=== PATIENT | female | born 1945 | race Caucasian/White ===

== ENCOUNTER → 2017-05-25 | Outpatient (CLI) | payer OTHER | LOC: CIMAGING 11:00 | PROVIDERS: ATTEND Internal Medicine | DX: Z12.31 Encounter for screening mammogram for malignant neoplasm of breast (principal); Z80.3 Family history of malignant neoplasm of breast | CPT/HCPCS: G0202 ==

== ENCOUNTER → 2018-06-13 | Outpatient (CLI) | payer OTHER, MEDICARE | LOC: BRMIMAGING 12:33 | PROVIDERS: ATTEND Internal Medicine | DX: Z12.31 Encounter for screening mammogram for malignant neoplasm of breast (principal); Z13.820 Encounter for screening for osteoporosis; M85.89 Other specified disorders of bone density and structure, multiple sites; Z78.0 Asymptomatic menopausal state; Z85.3 Personal history of malignant neoplasm of breast ==

== ENCOUNTER 2018-07-31 13:17 | Emergency (ER) | payer OTHER, MEDICARE ==
[2018-07-31 13:27] VITALS: BP 142/95
[2018-07-31] MEDS ORDERED: IBUPROFEN 600 MG TAB PO ONE (14:09)
--- NOTE | 2018-07-31 14:13 | EDPHY ---
H & P Time Seen by Provider: 07/31/18 13:24 HPI/ROS: CHIEF COMPLAINT: Left ankle pain HISTORY OF PRESENT ILLNESS: Patient states she was walking her dog about 1 hr prior to arrival when she slipped on ice. She felt her left foot and ankle go out from under her and fell to the ground. She was able to hobble back into her house after getting herself off the ground. She denies head, neck, hand, wrist, elbow or knee injuries. Denies other complaints or injuries. No loss of consciousness. REVIEW OF SYSTEMS: Negative except per HPI. General Appearance: Alert, no distress. Eyes: Pupils equal and round no icterus Respiratory: No respiratory distress Neurological: Awake, alert, no focal deficits. Skin: Warm and dry, no rashes. Musculoskeletal: Neck is supple nontender. Left ankle with swelling and tenderness over the lateral malleolus. No medial malleolar tenderness. No tenderness over the proximal 5th metatarsal. Distal circulation, sensation, movement intact. Rest of extremity exam normal. Psychiatric: Patient is oriented X 3, there is no agitation. Medical/surgical history: Breast cancer with right arm lymphedema. Hypertension, high cholesterol, GERD. Social history: Nonsmoker Smoking Status: Never smoked Constitutional: Initial Vital Signs Temperature (C) 36.9 C 07/31/18 13:23 Heart Rate 69 07/31/18 13:23 Respiratory Rate 18 07/31/18 13:23 Blood Pressure 142/95 H 07/31/18 13:23 O2 Sat (%) 95 07/31/18 13:23 O2 Delivery Mode Room Air Allergies/Adverse Reactions: azithromycin [From Zithromax] Allergy (Intermediate, Verified 07/31/18 13:22) Other-Enter Comments Penicillins Allergy (Intermediate, Verified 07/31/18 13:22) Hives Home Medications: Medication Instructions Recorded Atorvastatin Calcium [Lipitor 10 10 mg PO DAILY 08/14/11 mg] Metoprolol Tartrate 50 mg PO 08/14/11 Omeprazole 08/14/14 Citalopram 07/31/18 Medical Decision Making - Diagnostics Imaging Results: Distal fibula fracture with minimal displacement. Imaging: I viewed and interpreted images myself Differential Diagnosis: Patient with distal fibular fracture after slip and fall on ice today. No signs or complaints of other injury. Patient placed in a Ackerman type boot and given crutches as weight-bearing painful. Referred to Dr. Melo, orthopedist , for re-evaluation later this week. Understands follow-up and return precautions. Also reviewed RICE instructions. Offered stronger pain medications and patient refused. Stable for outpatient follow-up. - Data Points Medications Given: Discontinued Medications Ibuprofen (Motrin) 600 mg PO EDNOW ONE Stop: 07/31/18 14:10 Last Admin: 07/31/18 14:13 Dose: 600 mg Departure - Departure Disposition: Home, Routine, Self-Care Clinical Impression: Fibula fracture Qualifiers: Encounter type: initial encounter Fibula location: distal Fracture type: closed Fracture morphology: unspecified fracture morphology Laterality: left Qualified Code(s): S82.832A - Other fracture of upper and lower end of left fibula, initial encounter for closed fracture Condition: Good Instructions: Ankle Fracture (ED) Additional Instructions: Use crutches until follow-up with orthopedist. Wear Ackerman boot at all times other than in the shower and while in bed. Rest, ice frequently, elevate, use Kodak wrap under splint if desired. Call the orthopedist office today to make an appointment for recheck later this week. If your foot becomes more painful, cold, discolored, loose in your splint and return for re-evaluation to the emergency department. Use ibuprofen 600 mg 4 times a day as well as Tylenol 1000 mg 3 times a day as needed for pain. Referrals: Alicia Rasheed MD [Primary Care Provider] - As per Instructions Chaparro Melo MD [Medical Doctor] - As per Instructions
== END 2018-07-31 14:24 | disposition home or self-care (01) ==
LOC: CED 13:17
DX: S82.832A Other fracture of upper and lower end of left fibula, initial encounter for closed fracture (principal); W00.0XXA Fall on same level due to ice and snow, initial encounter
CPT/HCPCS: 73610; 99283; L4386